=== PATIENT | female | born 1960 | race Two or more races ===

== ENCOUNTER 2023-03-19 18:50 | Inpatient (IN) | payer MEDICARE, OTHER ==
[~2023-03-19] VITALS: Ht 167.6 cm; Wt 99.8 kg
[2023-03-19] MEDS ORDERED: IV NS 0.9% 1,000 ML BAG IV ONE (19:30)
[2023-03-19 21:07] LABS: BASOPHILS # (AUTO) 0.1 K/uL (0.0-0.2); BASOPHILS % (AUTO) 0.9 % (0.0-2.0); EOSINOPHILS # (AUTO) 0.1 K/uL (0.0-0.7); EOSINOPHILS % (AUTO) 0.9 % (0.0-6.0); HEMATOCRIT 39 % (33-45); HEMOGLOBIN 12.7 g/dL (11.5-14.8); LYMPHOCYTES # (AUTO) 1.1 K/uL (0.8-4.8); LYMPHOCYTES % (AUTO) 7.8 % (20.0-44.0); MEAN CORPUSCULAR HEMOGLOBIN 33 PG (26.0-33.0); MEAN CORPUSCULAR HGB CONC 32 g/dl (31.0-36.0); MEAN CORPUSCULAR VOLUME 101 fL (82-100); MONOCYTES # (AUTO) 0.6 K/uL (0.1-1.30); MONOCYTES % (AUTO) 4.2 % (2.0-12.0); NEUTROPHILS % (AUTO) 86.2 % (43.0-81.0); PLATELET COUNT (AUTO) 215 K/uL (150-450); RED BLOOD CELL COUNT(AUTO) 3.89 MIL/uL (4.0-5.2); RED CELL DISTRIBUTION WIDTH 14.8 % (11.5-15.0); WHITE BLOOD COUNT (AUTO) 13.9 K/uL (4.3-11.0)
[2023-03-19 21:25] LABS: CARBON DIOXIDE 20 mmol/L (21-32); CHLORIDE 109 mmol/L (98-107); CREATININE 0.4 mg/dL (0.6-1.3); GLUCOSE 124 mg/dL (74-106); POTASSIUM 3.6 mmol/L (3.5-5.1); SODIUM SERUM 139 mmol/L (136-145); UREA NITROGEN, BLOOD 22 mg/dL (7-18)
[2023-03-19 21:31] LABS: ALANINE AMINOTRANSFERASE 50 U/L (12-78); ALBUMIN 3.4 g/dL (3.4-5.0); ALKALINE PHOSPHATASE 100 U/L (46-116); ASPARTATE AMINOTRANSFERASE 25 U/L (15-37); BILIRUBIN,DIRECT 0.2 mg/dL (0.0-0.2); BILIRUBIN,TOTAL 0.3 mg/dL (0.2-1.0); LIPASE 55 U/L (73-393); TOTAL PROTEIN, SERUM 7.5 g/dL (6.4-8.2)
[2023-03-19] MEDS ORDERED: ACETAMINOPHEN ES 500 MG TABLET ONE (21:43)
[2023-03-19] MEDS ORDERED: PIPERACILLIN /TAZOBACTAM 3.375 G in IV D5W 50 ML IV ONE (22:00)
[2023-03-19] MEDS ORDERED: VANCOMYCIN HCL 1.25 GM in IV D5W 260 ML IV ONE (22:00)
[2023-03-19] MEDS ORDERED: ACETAMINOPHEN ES 500 MG TABLET PO ONE (22:00)
[2023-03-19] MEDS ORDERED: PIPERACI/TAZO 3.375GM/D5W 50ML PB IV ONE ×2 (22:04→22:22)
[2023-03-19] MEDS ORDERED: VANCOMYCIN 1 GM /D5W 250 ML PB IV ONE (22:22)
[2023-03-20] MEDS ORDERED: ONDANSETRON HCL/PF 4 MG/2 ML VIAL IVP PRN
[2023-03-20 00:12] LABS: ABG BASE EXCESS -5.6 mmol/L; ABG OXYGEN SATURATION 99.7 % (92.0-98.5); ABG PCO2 32.2 mmHg (35.0-45.0); ABG PH 7.378 (7.350-7.450); ABG PO2 368.7 mmHg (75.0-100.0); ABG TOTAL HEMOGLOBIN 12.5 G/dL (12.0-16.0); COHb 2.2 % (0.5-1.5); MetHb 0.3 % (0.0-1.5); O2Hb 97.2 % (94.0-97.0); SITE, ABG Left Radial; VENT MODE, BG AC 16 400 100% +5
[2023-03-20 01:41] LABS: BASOPHILS % (MANUAL) 0 % (0.0-2.0); EOSINOPHILS % (MANUAL) 2 % (0-4); LYMPHOCYTES % (MANUAL) 9 % (16-48); MONOCYTES % (MANUAL) 5 % (0-11.0); NEUTROPHILS % (MANUAL) 84 (42-76)
[2023-03-20 01:42] LABS: ANISOCYTOSIS 1+; PLATELET ESTIMATE ADEQUATE
[2023-03-20] MEDS ORDERED: LORAZEPAM INJ 2 MG/ML VIAL ONE (01:48)
[2023-03-20] MEDS ORDERED: LORAZEPAM INJ 2 MG/ML VIAL IV ONE (02:00)
[2023-03-20 02:41] LABS: ADD URINE CULTURE YES; APPEARANCE,URINE SLIGHTLY CLOUDY (CLEAR); BACTERIA,URINE Moderate /HPF (None Seen); BILIRUBIN,URINE NEGATIVE (NEGATIVE); BLOOD, URINE 2+ Ery/uL (NEGATIVE); COLOR,URINE YELLOW (YELLOW); KETONES,URINE NEGATIVE (NEGATIVE); LEUKOCYTE ESTERASE ,URINE 1+ (NEGATIVE); NITRITE, URINE POSITIVE (NEGATIVE); PROTEIN,URINE NEGATIVE (NEGATIVE); SQUAMOUS EPITHELIAL CELL,UR Rare /HPF (None Seen); UGLUCOSE NEGATIVE (NEGATIVE); UROBILINOGEN,URINE 0.2 EU/dL (0.2); WBC,URINE 21-50 /HPF (0-3)
[2023-03-20 05:52] LABS: BASOPHILS % (AUTO) 0.2 % (0.0-2.0); EOSINOPHILS # (AUTO) 0.1 K/uL (0.0-0.7); EOSINOPHILS % (AUTO) 1.4 % (0.0-6.0); HEMATOCRIT 36 % (33-45); HEMOGLOBIN 11.9 g/dL (11.5-14.8); LYMPHOCYTES # (AUTO) 1.6 K/uL (0.8-4.8); LYMPHOCYTES % (AUTO) 17.3 % (20.0-44.0); MEAN CORPUSCULAR HEMOGLOBIN 33 PG (26.0-33.0); MEAN CORPUSCULAR HGB CONC 33 g/dl (31.0-36.0); MEAN CORPUSCULAR VOLUME 100 fL (82-100); MONOCYTES # (AUTO) 0.6 K/uL (0.1-1.30); MONOCYTES % (AUTO) 6.4 % (2.0-12.0); NEUTROPHILS # (AUTO) 6.9 K/uL (1.8-8.9); NEUTROPHILS % (AUTO) 74.7 % (43.0-81.0); PLATELET COUNT (AUTO) 238 K/uL (150-450); RED BLOOD CELL COUNT(AUTO) 3.61 MIL/uL (4.0-5.2); RED CELL DISTRIBUTION WIDTH 14.5 % (11.5-15.0); WHITE BLOOD COUNT (AUTO) 9.2 K/uL (4.3-11.0)
[2023-03-20 06:06] LABS: CALCIUM, SERUM 8.9 mg/dL (8.5-10.1); CREATININE 0.4 mg/dL (0.6-1.3); PHOSPHORUS 4.1 mg/dL (2.5-4.9); POTASSIUM 3.6 mmol/L (3.5-5.1)
[2023-03-20] MEDS ORDERED: CEFTRIAXONE 1 G in IV D5W 50 ML IV SCH (08:00)
[2023-03-20] MEDS ORDERED: RILU50TA4 GT (08:01)
[2023-03-20] MEDS ORDERED: PARO10OR3 GT (08:01)
[2023-03-20] MEDS ORDERED: DEXT1CAP3 PO (08:01)
[2023-03-20] MEDS ORDERED: SCOP1PAT11 TD (08:01)
[2023-03-20] MEDS ORDERED: IPRA3AMP23 IH (08:01)
[2023-03-20] MEDS ORDERED: LORA2TAB95 GT (08:01)
[2023-03-20] MEDS ORDERED: PANT40TA49 GT (08:01)
[2023-03-20 09:00] VITALS: BP 128/82; TEMP 98.4; O2SAT 98
[2023-03-20] MEDS: ACETYLCYSTEINE 10% SOLN 400 MG/4 ML VIAL NEB SCH ×3 (09:30→23:35)
[2023-03-20] MEDS: ALBUTEROL HALF STRENGTH 1.25 MG/3 ML VIAL.NEB NEB SCH ×3 (09:30→19:21)
[2023-03-20] MEDS: IPRATROPIUM NEB FS 0.5 MG/2.5 ML AMPUL.NEB NEB SCH ×3 (09:30→19:21)
[2023-03-20] MEDS: IV NS 0.9% 1,000 ML IV PRN (09:50)
[2023-03-20] MEDS: ENOXAPARIN SODIUM 40 MG/0.4 ML DISP.SYRIN SQ SCH (09:50)
[2023-03-20] MEDS: ACETAMINOPHEN 325 MG TABLET PO PRN ×2 (10:46→19:34)
[2023-03-20] MEDS: LORAZEPAM 1 MG TABLET PO PRN ×2 (12:51→22:07)
[2023-03-20 13:00] VITALS: BP 135/81; TEMP 98.6; O2SAT 98
[2023-03-20] MEDS ORDERED: JEVITY 1.2 CAL 1,000 ML BOTTLE GT PRN (13:00)
[2023-03-20] MEDS ORDERED: VITAL AF 1.2 1,000 ML BOTTLE GT PRN (13:30)
[2023-03-20 17:00] VITALS: BP 129/83; TEMP 98.7; O2SAT 99
[2023-03-20] MEDS: VANCOMYCIN 1 GM in IV D5W 250 ML IV SCH (17:20)
[2023-03-20] MEDS: CEFEPIME 2 GM in IV D5W 100 ML IV SCH (18:30)
[2023-03-20 21:00] VITALS: BP 147/80; TEMP 97.6; O2SAT 99
[2023-03-21] VITALS: BP 93/59; TEMP 98.1; O2SAT 95
[2023-03-21] MEDS: VANCOMYCIN 1 GM in IV D5W 250 ML IV SCH ×3 (00:34→16:45)
[2023-03-21] MEDS: IPRATROPIUM NEB FS 0.5 MG/2.5 ML AMPUL.NEB NEB SCH ×4 (02:07→20:08)
[2023-03-21] MEDS: ALBUTEROL HALF STRENGTH 1.25 MG/3 ML VIAL.NEB NEB SCH ×4 (02:07→20:08)
[2023-03-21 04:00] VITALS: BP 108/78; TEMP 97.8; O2SAT 99
[2023-03-21] MEDS: IV NS 0.9% 1,000 ML IV PRN (04:42)
[2023-03-21] MEDS: CEFEPIME 2 GM in IV D5W 100 ML IV SCH ×2 (05:13→17:09)
[2023-03-21 07:17] LABS: CALCIUM, SERUM 8.6 mg/dL (8.5-10.1); CREATININE 0.2 mg/dL (0.6-1.3); POTASSIUM 3.7 mmol/L (3.5-5.1)
[2023-03-21] MEDS: ACETYLCYSTEINE 10% SOLN 400 MG/4 ML VIAL NEB SCH ×2 (07:28→14:36)
[2023-03-21 08:00] VITALS: BP 114/62; TEMP 98.6; O2SAT 99
[2023-03-21] MEDS: ENOXAPARIN SODIUM 40 MG/0.4 ML DISP.SYRIN SQ SCH (08:12)
[2023-03-21] MEDS: ACETAMINOPHEN 325 MG TABLET PO PRN (09:17)
[2023-03-21 12:00] VITALS: BP 136/88; TEMP 98.6; O2SAT 99
[2023-03-21] MEDS ORDERED: Z GUARD REMEDY 4 OZ OINT TP PRN (12:00)
[2023-03-21] MEDS: Z GUARD REMEDY 4 OZ OINT TP SCH (12:48)
[2023-03-21] MEDS ORDERED: POLYETHYLENE GLYCOL 3350 17 GM POWD.PACK PO PRN (14:30)
[2023-03-21] MEDS: DOCUSATE SODIUM 100 MG CAPSULE PO SCH ×2 (15:10→16:17)
[2023-03-21 16:00] VITALS: BP 115/84; TEMP 98.6; O2SAT 98
[2023-03-21 20:00] VITALS: BP 108/75; TEMP 98; O2SAT 99
[2023-03-21] MEDS: LORAZEPAM 1 MG TABLET PO PRN (23:25)
[2023-03-22] VITALS: BP 117/75; TEMP 98.3; O2SAT 100
[2023-03-22] MEDS: ACETYLCYSTEINE 10% SOLN 400 MG/4 ML VIAL NEB SCH ×3 (00:25→15:32)
[2023-03-22] MEDS: IV NS 0.9% 1,000 ML IV PRN ×2 (01:26→23:06)
[2023-03-22] MEDS: ALBUTEROL HALF STRENGTH 1.25 MG/3 ML VIAL.NEB NEB SCH ×4 (02:22→19:31)
[2023-03-22] MEDS: IPRATROPIUM NEB FS 0.5 MG/2.5 ML AMPUL.NEB NEB SCH ×4 (02:22→19:31)
[2023-03-22 04:00] VITALS: BP 102/66; TEMP 98.6; O2SAT 98
[2023-03-22] MEDS: CEFEPIME 2 GM in IV D5W 100 ML IV SCH ×2 (05:05→17:03)
[2023-03-22] MEDS: [UNRECOGNIZED DRUG - MIXTURE] GT PRN (06:40)
[2023-03-22 07:24] LABS: BASOPHILS % (AUTO) 0.6 % (0.0-2.0); EOSINOPHILS # (AUTO) 0.2 K/uL (0.0-0.7); HEMATOCRIT 31 % (33-45); HEMOGLOBIN 10.2 g/dL (11.5-14.8); LYMPHOCYTES # (AUTO) 1.4 K/uL (0.8-4.8); LYMPHOCYTES % (AUTO) 24.9 % (20.0-44.0); MEAN CORPUSCULAR HEMOGLOBIN 33 PG (26.0-33.0); MEAN CORPUSCULAR HGB CONC 33 g/dl (31.0-36.0); MEAN CORPUSCULAR VOLUME 101 fL (82-100); MONOCYTES # (AUTO) 0.4 K/uL (0.1-1.30); MONOCYTES % (AUTO) 6.7 % (2.0-12.0); NEUTROPHILS # (AUTO) 3.5 K/uL (1.8-8.9); NEUTROPHILS % (AUTO) 63.8 % (43.0-81.0); PLATELET COUNT (AUTO) 185 K/uL (150-450); RED BLOOD CELL COUNT(AUTO) 3.07 MIL/uL (4.0-5.2); RED CELL DISTRIBUTION WIDTH 14.4 % (11.5-15.0); WHITE BLOOD COUNT (AUTO) 5.5 K/uL (4.3-11.0)
[2023-03-22 07:41] LABS: ALBUMIN 2.6 g/dL (3.4-5.0); BILIRUBIN,TOTAL 0.4 mg/dL (0.2-1.0); CALCIUM, SERUM 8.4 mg/dL (8.5-10.1); CREATININE 0.2 mg/dL (0.6-1.3); MAGNESIUM 2.2 mg/dL (1.8-2.4); PHOSPHORUS 3.2 mg/dL (2.5-4.9); POTASSIUM 3.8 mmol/L (3.5-5.1); TOTAL PROTEIN, SERUM 6.1 g/dL (6.4-8.2)
[2023-03-22 08:00] VITALS: BP 103/63; TEMP 97.6; O2SAT 97
[2023-03-22] MEDS: DOCUSATE SODIUM 100 MG CAPSULE PO SCH ×2 (08:10→17:03)
[2023-03-22] MEDS: VANCOMYCIN 1 GM in IV D5W 250ml IV SCH ×2 (08:11→20:10)
[2023-03-22] MEDS: ENOXAPARIN SODIUM 40 MG/0.4 ML DISP.SYRIN SQ SCH (08:14)
[2023-03-22] MEDS: Z GUARD REMEDY 4 OZ OINT TP SCH (09:59)
[2023-03-22 12:00] VITALS: BP 119/84; TEMP 98.5; O2SAT 98
[2023-03-22 16:00] VITALS: BP 136/92; TEMP 98.1; O2SAT 97
[2023-03-22 20:00] VITALS: BP 133/90; TEMP 98.2; O2SAT 98
[2023-03-22] MEDS: LORAZEPAM 1 MG TABLET PO PRN (23:13)
[2023-03-23] VITALS (7 sets, daily range): BP systolic 115–220; BP diastolic 65–114; TEMP 97–98.3; O2SAT 91–98
[2023-03-23] MEDS: ACETYLCYSTEINE 10% SOLN 400 MG/4 ML VIAL NEB SCH ×3 (05:32→15:43)
[2023-03-23] MEDS: ALBUTEROL HALF STRENGTH 1.25 MG/3 ML VIAL.NEB NEB SCH ×4 (05:32→20:13)
[2023-03-23] MEDS: IPRATROPIUM NEB FS 0.5 MG/2.5 ML AMPUL.NEB NEB SCH ×4 (05:33→20:13)
[2023-03-23] MEDS: CEFEPIME 2 GM in IV D5W 100 ML IV SCH ×2 (05:45→18:44)
[2023-03-23 06:15] LABS: BASOPHILS % (AUTO) 0.5 % (0.0-2.0); EOSINOPHILS # (AUTO) 0.2 K/uL (0.0-0.7); EOSINOPHILS % (AUTO) 3.5 % (0.0-6.0); HEMATOCRIT 31 % (33-45); HEMOGLOBIN 10.6 g/dL (11.5-14.8); LYMPHOCYTES # (AUTO) 1.9 K/uL (0.8-4.8); LYMPHOCYTES % (AUTO) 28.1 % (20.0-44.0); MEAN CORPUSCULAR HEMOGLOBIN 33 PG (26.0-33.0); MEAN CORPUSCULAR HGB CONC 34 g/dl (31.0-36.0); MEAN CORPUSCULAR VOLUME 99 fL (82-100); MONOCYTES # (AUTO) 0.6 K/uL (0.1-1.30); MONOCYTES % (AUTO) 8.2 % (2.0-12.0); NEUTROPHILS # (AUTO) 4.1 K/uL (1.8-8.9); NEUTROPHILS % (AUTO) 59.7 % (43.0-81.0); PLATELET COUNT (AUTO) 191 K/uL (150-450); RED BLOOD CELL COUNT(AUTO) 3.17 MIL/uL (4.0-5.2); RED CELL DISTRIBUTION WIDTH 14.2 % (11.5-15.0); WHITE BLOOD COUNT (AUTO) 6.9 K/uL (4.3-11.0)
[2023-03-23 07:34] LABS: ALBUMIN 2.8 g/dL (3.4-5.0); BILIRUBIN,TOTAL 0.5 mg/dL (0.2-1.0); CALCIUM, SERUM 8.6 mg/dL (8.5-10.1); CREATININE 0.3 mg/dL (0.6-1.3); MAGNESIUM 1.9 mg/dL (1.8-2.4); POTASSIUM 3.2 mmol/L (3.5-5.1); TOTAL PROTEIN, SERUM 6.3 g/dL (6.4-8.2)
[2023-03-23] MEDS: VANCOMYCIN 1 GM in IV D5W 250ml IV SCH (08:04)
[2023-03-23] MEDS: PAROXETINE HCL 10 MG TABLET PO SCH (08:45)
[2023-03-23] MEDS: Z GUARD REMEDY 4 OZ OINT TP SCH (08:45)
[2023-03-23] MEDS: ENOXAPARIN SODIUM 40 MG/0.4 ML DISP.SYRIN SQ SCH (08:46)
[2023-03-23] MEDS: [UNRECOGNIZED DRUG - MIXTURE] GT PRN (08:48)
[2023-03-23] MEDS: PROSOURCE / PROSTAT (PYXIS) 30 ML UDC GT SCH (08:49)
[2023-03-23] MEDS: DOCUSATE SODIUM 100 MG CAPSULE PO SCH (08:49)
[2023-03-23] MEDS: ACETAMINOPHEN 325 MG TABLET PO PRN (09:22)
[2023-03-23] MEDS: METOPROLOL TARTRATE 25 MG TABLET PO SCH ×2 (12:43→20:14)
[2023-03-23] MEDS: POTASSIUM CL. PREMIX PERIPHER. 50 ML IV SCH ×4 (13:42→17:11)
[2023-03-23] MEDS: LORAZEPAM 1 MG TABLET PO PRN (15:23)
[2023-03-23] MEDS: hydrALAZINE HCL IV 20 MG VIAL IV PRN (16:36)
[2023-03-23] MEDS: DOCUSATE SODIUM LIQ 100 MG/10 ML UDC GT SCH (17:00)
[2023-03-23] MEDS: IV NS 0.9% 1,000 ML IV PRN (23:47)
[2023-03-24] VITALS: BP 167/109; TEMP 97.5; O2SAT 94
[2023-03-24] MEDS: LORAZEPAM 1 MG TABLET PO PRN (00:04)
[2023-03-24] MEDS: IPRATROPIUM NEB FS 0.5 MG/2.5 ML AMPUL.NEB NEB SCH ×3 (00:50→13:45)
[2023-03-24] MEDS: ACETYLCYSTEINE 10% SOLN 400 MG/4 ML VIAL NEB SCH ×3 (00:50→13:45)
[2023-03-24] MEDS: ALBUTEROL HALF STRENGTH 1.25 MG/3 ML VIAL.NEB NEB SCH ×3 (00:50→13:45)
[2023-03-24] MEDS: hydrALAZINE HCL IV 20 MG VIAL IV PRN ×2 (01:42→12:14)
[2023-03-24] MEDS: ACETAMINOPHEN 325 MG TABLET PO PRN (03:07)
[2023-03-24 04:00] VITALS: BP 153/94; TEMP 99.8; O2SAT 94
[2023-03-24] MEDS: CEFEPIME 2 GM in IV D5W 100 ML IV SCH ×2 (06:01→14:51)
[2023-03-24 06:04] LABS: CALCIUM, SERUM 9.2 mg/dL (8.5-10.1); CREATININE 0.3 mg/dL (0.6-1.3); POTASSIUM 3.4 mmol/L (3.5-5.1)
[2023-03-24 08:00] VITALS: BP 157/84; TEMP 98.5; O2SAT 94
[2023-03-24] MEDS: DOCUSATE SODIUM LIQ 100 MG/10 ML UDC GT SCH ×2 (09:40→17:00)
[2023-03-24] MEDS: PROSOURCE / PROSTAT (PYXIS) 30 ML UDC GT SCH (09:41)
[2023-03-24] MEDS: METOPROLOL TARTRATE 25 MG TABLET PO SCH (09:41)
[2023-03-24] MEDS: PAROXETINE HCL 10 MG TABLET PO SCH (09:41)
[2023-03-24] MEDS: ENOXAPARIN SODIUM 40 MG/0.4 ML DISP.SYRIN SQ SCH (09:42)
[2023-03-24] MEDS: Z GUARD REMEDY 4 OZ OINT TP SCH (09:48)
[2023-03-24] MEDS ORDERED: POTASSIUM CHLORIDE 20 MEQ POWDER PACKET NG SCH (10:30)
[2023-03-24 12:00] VITALS: BP 194/113; TEMP 98.2; O2SAT 94
[2023-03-24] MEDS ORDERED: METO25TA20 PO (12:18)
[2023-03-24 16:00] VITALS: BP 163/101; TEMP 97.5; O2SAT 94
== END 2023-03-24 17:15 | disposition home health service (06) | DRG 207 ==
LOC: ER 18:54 → TELE-TD 03-20 07:38 → TELE1 03-21 09:44
PROVIDERS: ADMIT Nurse Practitioner Acute Care
PROC: 5A1955Z Respiratory Ventilation, Greater than 96 Consecutive Hours (ICD-10-PCS; principal; 2023-03-19)
PROC: 05H633Z Insertion of Infusion Device into Left Subclavian Vein, Percutaneous Approach (ICD-10-PCS; 2023-03-24)
PROC: B547ZZA Ultrasonography of Left Subclavian Vein, Guidance (ICD-10-PCS; 2023-03-24)
DX: T17.990A Other foreign object in respiratory tract, part unspecified in causing asphyxiation, initial encounter (principal); I21.A1 Myocardial infarction type 2; J96.21 Acute and chronic respiratory failure with hypoxia; R53.2 Functional quadriplegia; J98.11 Atelectasis; N39.0 Urinary tract infection, site not specified; Z99.11 Dependence on respirator [ventilator] status; G12.21 Amyotrophic lateral sclerosis; D68.69 Other thrombophilia; E66.01 Morbid (severe) obesity due to excess calories; F41.9 Anxiety disorder, unspecified; R13.10 Dysphagia, unspecified; Z93.1 Gastrostomy status; Z93.0 Tracheostomy status; D72.829 Elevated white blood cell count, unspecified; Z68.35 Body mass index [BMI] 35.0-35.9, adult; B96.5 Pseudomonas (aeruginosa) (mallei) (pseudomallei) as the cause of diseases classified elsewhere; R93.5 Abnormal findings on diagnostic imaging of other abdominal regions, including retroperitoneum
CPT/HCPCS: 31720; 36415; 36600; 71045-TC; 74018; 80048-TC; 80053-TC; 80061-TC; 80076-TC; 80202-TC; 81001; 82803-TC; 83690-TC; 83735-TC; 83880; 84100-TC; 84484-TC; 85025-TC; 87040-TC; 87086-TC; 93307-TC; 93970-TC; 93971-TC; 94002-TC; 94003-TC; 94760-TC; 94762-TC; 94799-TC; A4217; A4223; A4623; G0378; J0360; J0692; J0696; J1650; J2060; J2543; J3370; J3480; J7030; J7060